=== PATIENT | male | born 1985 | race Caucasian/White ===

== ENCOUNTER 2018-05-31 13:42 | Inpatient (IN) ==
[2018-05-31 15:01] LABS: Basophils # (Auto) 0 K/mcL (0.0-0.3); Basophils % (Auto) 0.1 % (0.0-2.0); Eosinophils # (Auto) 0.1 K/mcL (0.0-0.7); Eosinophils % (Auto) 0.5 % (0.0-7.0); Granulocytes % (Auto) 85.3 % (38.0-78.0); Lymphocytes # (Auto) 1.2 K/mcL (1.5-4.8); Lymphocytes % (Auto) 6.1 % (15.5-49.0); Mean Cell Volume 83.1 fL (80.0-100.0); Mean Corpuscular HGB Conc 33.1 g/dL (31.0-36.0); Monocytes # (Auto) 1.5 K/mcL (0.1-0.9); Platelet Count 326 K/mcL (140-440); RBC 5.68 M/mcL (4.50-5.90); Red Cell Distribution Width 13.8 % (11.5-14.5)
[2018-05-31 15:20] LABS: ALT/SGPT 22 U/l (0-40); Albumin 4.3 gm/dL (3.2-5.2); Albumin/Globulin Ratio 1.3 (1.0-2.3); Alkaline Phosphatase 51 U/L (39-117); Blood Urea Nitrogen 9 mg/dl (6-20); Lipase 20 U/L (7-60)
[2018-05-31] MEDS ORDERED: 0.9 % SODIUM CHLORIDE 1,000 ML IV ONE (15:34)
[2018-05-31] MEDS ORDERED: ONDANSETRON 4 MG/2 ML VIAL IV ONE (15:34)
[2018-05-31] MEDS ORDERED: HYDROmorphone 2 MG/ML VIAL IV PRN (15:34)
--- NOTE | 2018-05-31 15:38 | Emergency Department Note ---
Abdominal Pain HPI - General Chief Complaint: Abdominal Pain Stated Complaint: abdominal pain Time Seen by Provider: 05/31/18 14:20 Source: patient Mode of arrival: ambulatory Limitations: no limitations - History of Present Illness HPI Narrative: 32-year-old male presents with continued diffuse upper abdominal pain. He also feels a pressure radiating down throughout his abdomen when he stands up. He was seen here yesterday after sudden onset of a couple hours of abdominal pain, nausea, vomiting. States he has had some nausea today but no vomiting. States when he is just resting his pain is actually a little bit better but when he is up and around it is not. States he did not feel well enough to go to work and thus thinks he is getting worse instead of better so he read presented to ER today. Positive chills, unknown fever. No diarrhea. No other home treatments. No cough or cold symptoms. He did have a CT of the abdomen and pelvis yesterday which showed air-fluid levels in a nonspecific pattern likely either gastroenteritis or some partial small bowel obstruction. Yesterday he chose to go home because he stated he could not miss work. States he is too sick to go to work - Related Data Previous Rx's Medication Instructions Recorded HYDROcodone/APAP 5/325MG [[place] 1 tab PO Q4HP PRN #10 tab 05/30/18 5-325Mg] Ondansetron [Zofran ODT] 4 mg SL Q4-6HP PRN #10 tab 05/30/18 Allergies Allergy/AdvReac Type Severity Reaction Status Date / Time Cefaclor [From [facility]] Allergy Hives Verified 05/31/18 13:46 Review of Systems All systems ED: reviewed and negative except as stated. Abdominal Pain PMH - Past Medical History Medical history: Reports: other (Hiatal hernia, morbid obesity) Surgical history ED: Reports: no surgical history - Social History Smoking status: Never smoker Alcohol use: Reports: Occasionally Drug use: Reports: unknown Physical Exam Limitations: no limitations General appearance: alert Head: atraumatic, normocephalic, normal inspection Eye: Present: normal appearance. Absent: conjunctival injection ENT: mucous membranes moist Neck: Present: normal inspection, trachea midline. Absent: tenderness, lymphadenopathy Chest: Present: symmetric chest wall rise Respiratory: Present: normal lung sounds bilaterally. Absent: respiratory distress, rales/crackles, wheezes, accessory muscle use Cardiovascular: Present: regular rate, normal heart sounds Abdominal: Present: soft (Large obese abdomen), tenderness (Diffuse epigastric a nd upper abdominal tenderness. Worse midepigastric.), normal bowel sounds. Absent: guarding, rebound, mass Extremities: Present: normal inspection, normal capillary refill Back: Absent: CVA tenderness (R), CVA tenderness (L) Neurological: Present: alert, oriented X3 Psychiatric: Present: normal affect, normal mood Skin: Present: warm, dry, intact, normal color Course Course Narrative: At 1530 I did speak with the surgeon on-call, Dr. Mendez. He would like us to admit this patient observation and will repeat CT tomorrow morning if no improvement. He would like us to hold off on antibiotics currently. Vital Signs Temperature 97.7 F 05/31/18 13:42 Pulse Rate 105 H 05/31/18 13:42 Respiratory Rate 22 05/31/18 13:42 Blood Pressure 133/82 05/31/18 13:42 Pulse Oximetry (%) 96 05/31/18 13:42 Temperature 97.7 F 05/31/18 13:42 Pulse Rate 86 05/31/18 15:18 Respiratory Rate 22 05/31/18 13:42 Blood Pressure 128/68 05/31/18 15:18 Pulse Oximetry (%) 97 05/31/18 15:18 Abdominal Pain - Lab Data Lab results reviewed: Yes I reviewed the patient's lab results. Result diagrams: 05/31/18 14:30 05/31/18 14:30 Lab Results 05/31/18 05/31/18 Range/Units 14:30 14:30 WBC 19.2 H (4.5-11.0) K/mcL RBC 5.68 (4.50-5.90) M/mcL Hgb 15.6 (13.5-16.5) g/dL Hct 47.2 (41.0-55.0) % MCV 83.1 (80.0-100.0) fL MCH 27.5 (26.0-34.0) pg MCHC 33.1 (31.0-36.0) g/dL RDW 13.8 (11.5-14.5) % Plt Count 326 (140-440) K/mcL MPV 8.2 (7.4-10.4) fL Gran % 85.3 H (38.0-78.0) % Lymph % (Auto) 6.1 L (15.5-49.0) % [place] % (Auto) 8.0 (1.0-12.0) % Eos % (Auto) 0.5 (0.0-7.0) % Baso % (Auto) 0.1 (0.0-2.0) % Gran # 16.4 H (1.8-8.0) K/mcL Lymph # (Auto) 1.2 L (1.5-4.8) K/mcL [place] # (Auto) 1.5 H (0.1-0.9) K/mcL Eos # (Auto) 0.1 (0.0-0.7) K/mcL Baso # (Auto) 0 (0.0-0.3) K/mcL Sodium 137 (133-145) mmol/L Potassium 4.1 (3.3-5.1) mmol/L Chloride 98 (96-108) mmol/L Carbon Dioxide 27 (22-30) mmol/L Anion Gap 12.0 (8-16) BUN 9 (6-20) mg/dl Creatinine 1.1 (0.7-1.2) mg/dl GFR Calculation 89 Glucose 104 (70-105) mg/dL Calcium 9.4 (8.6-10.4) mg/dl Total Bilirubin 1.1 H (0.0-1.0) mg/dL AST 18 (0-37) U/l ALT 22 (0-40) U/l Alkaline Phosphatase 51 (39-117) U/L Total Protein 7.6 (5.9-8.4) gm/dL Albumin 4.3 (3.2-5.2) gm/dL Globulin 3.3 (2.2-3.7) gm/dL Albumin/Globulin Ratio 1.3 (1.0-2.3) Lipase 20 (7-60) U/L - Radiology Data Radiology results reviewed: Yes I reviewed the patient's radiology results. 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
[2018-05-31] MEDS ORDERED: ONDANSETRON 4 MG/2 ML VIAL IV PRN (15:46)
[2018-05-31 16:11] LABS: Appearance,Urine HAZY; Bacteria,Urine FEW /hpf (0); Bilirubin,Urine NEG (NEG); Color,Urine AMBER; Glucose,Urine (UA) NEGATIVE (NEG); Leukocyte Esterase,Urine NEG /uL (NEG); Mucus,Urine MANY /hpf (0); Protein,Urine 100 mg/dL (NEG); Specific Gravity,Urine 1.031 (1.000-1.035); Urine Blood NEG mg/dL (<0.03); Urine Hyaline Cast 3 /lpf (0-2); Urine RBC 1 /hpf (0-1); Urine Squamous Epithelial Cell < 1 /hpf (0-4); Urine Transitional Epi Cells < 1 /hpf (0-2); Urine WBC 3 /hpf (0-4)
[2018-05-31] MEDS: HYDROmorphone 2 MG/ML VIAL IV PRN (18:18)
[2018-05-31] MEDS: 0.9 % SODIUM CHLORIDE 1,000 ML IV SCH (18:20)
[2018-05-31] MEDS: ACETAMINOPHEN 1,000 MG/100 ML BOTTLE IV PRN (19:37)
[2018-05-31] MEDS: metroNIDAZOLE 500 MG/100 ML BAG IV SCH (20:14)
[2018-05-31] MEDS: LEVOFLOXACIN 750 MG/150 ML BAG IV SCH (21:21)
[2018-05-31] MEDS: PANTOPRAZOLE 40 MG VIAL IV SCH (21:28)
[2018-06-01] MEDS: metroNIDAZOLE 500 MG/100 ML BAG IV SCH ×5 (00:49→23:50)
[2018-06-01] MEDS: 0.9 % SODIUM CHLORIDE 1,000 ML IV SCH ×6 (05:51→23:58)
[2018-06-01 06:00] LABS: Basophils # (Auto) 0 K/mcL (0.0-0.3); Basophils % (Auto) 0.1 % (0.0-2.0); Eosinophils # (Auto) 0.1 K/mcL (0.0-0.7); Eosinophils % (Auto) 0.3 % (0.0-7.0); Granulocytes % (Auto) 90.5 % (38.0-78.0); Lymphocytes % (Auto) 3.8 % (15.5-49.0); Mean Cell Volume 83.6 fL (80.0-100.0); Mean Corpuscular HGB Conc 33.1 g/dL (31.0-36.0); Monocytes # (Auto) 1.4 K/mcL (0.1-0.9); Monocytes % (Auto) 5.3 % (1.0-12.0); Platelet Count 292 K/mcL (140-440); RBC 4.94 M/mcL (4.50-5.90); Red Cell Distribution Width 14.4 % (11.5-14.5)
[2018-06-01 06:34] LABS: ALT/SGPT 18 U/l (0-40); Albumin 3.3 gm/dL (3.2-5.2); Albumin/Globulin Ratio 1.1 (1.0-2.3); Alkaline Phosphatase 43 U/L (39-117); Blood Urea Nitrogen 12 mg/dl (6-20)
[2018-06-01] MEDS: PANTOPRAZOLE 40 MG VIAL IV SCH ×2 (08:22→20:32)
[2018-06-01] MEDS: ACETAMINOPHEN 1,000 MG/100 ML BOTTLE IV PRN ×2 (08:23→21:16)
[2018-06-01] MEDS ORDERED: VANCOMYCIN PER PHARMACY IV SCH (10:00)
[2018-06-01] MEDS: VANCOMYCIN 1,500 MG in 0.9 % SODIUM CHLORIDE 500 ML IV SCH ×2 (10:28→20:32)
[2018-06-01] MEDS: HYDROmorphone 2 MG/ML VIAL IV PRN (10:37)
[2018-06-01] MEDS: LEVOFLOXACIN 750 MG/150 ML BAG IV SCH (13:53)
[2018-06-01] MEDS ORDERED: 0.9 % SODIUM CHLORIDE 1,000 ML IV ONE (15:10)
--- NOTE | 2018-06-01 15:44 | General Surg History&Physical ---
History of Present Illness Patient information: Note initiated : 06/01/18 at 3:40 pm Service Date, if different from initiated Date: [] Patient: Cheko Bautista 32 y/o M admitted on 06/01/18 for Abd Pain. Chief Complaint: [] HPI: Mr. Bautista is a 32 year old M admitted with upper abdominal pain, fever, chills, and probable sepsis. The patient had onset of upper abdominal discomfort with nausea, vomiting and diaphoresis. 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 He gives a history of having diarrhea intermittently for many months but this usually resolves spontaneously. He denied having any sore throat, facial pain, neck pain, chest discomfort or cough. He denies any swelling, tenderness or inflammation in his extremities. He denies any animal bites or scratches. The patient was seen in the emergency room where he was afebrile with a normal exam except for epigastric tenderness. He was treated for suspected gastritis and released. He returns on the day of admission with diffuse upper abdominal pain, continued nausea but no vomiting. He was having more chills and fever. CT of the abdomen showed scattered air-fluid levels suspicious for gastroenteritis but otherwise no abnormality. There was specifically no free air in the upper abdomen. Patient has remained symptomatic and his temperature elevations have increased to 103. His white blood count is increased to 19.2. He is admitted and will be started on antibiotics pending cultures. He does not have a clinical acute abdomen at this time. Review of Systems - Constitutional chills, fever(s), headache(s), malaise, weakness - EENT Nose, mouth and throat: no dental pain, no dysphagia, no facial pain, no mouth lesions, no neck pain, no sinus pain, no sinus pressure, no throat swelling, no tongue swelling - Cardiovascular diaphoresis, rapid heart rate, no chest pain, no dyspnea on exertion, no palpatations - Respiratory no cough, no dyspnea on exertion, no wheezing, no chest congestion, no excessive phlegm production - Gastrointestinal abdominal pain, heartburn, nausea, vomiting - Genitourinary no difficulty urinating, no dysuria, no scrotal swelling, no urinary frequency, no urinary incontinence, no urinary urgency - Musculoskeletal no arthralgias, no joint swelling, no myalgias, no neck pain, no stiffness - Integumentary no lesions, no non-healing lesions, no pruritus, no rash (now) - Neurological no confusion, no dizziness, no headache(s) - Psychiatric no anxiety, no depression, no irritability - Endocrine fatigue, no polydipsia, no polyphagia, no polyuria - Hematologic/Lymphatic no easy bleeding, no easy bruising, no lymphadenopathy - Allergic/Immunologic no tongue swelling, no throat swelling, no itchy eyes, no uticaria, no wheezing, no lip swelling Past History Past medical history: No chronic medical illness Past surgical history: No operative procedures Past family history: Never smoker, occasional drinker. Strictly denies IV drug use Past social history: . Employed Medications and Allergies Home Medications Medication Instructions Recorded Confirmed Type Acetaminophen [Tylenol] 1,000 mg PO TIDP PRN 05/31/18 05/31/18 History Ibuprofen [I-Prin] 2 - 3 tab PO TIDP PRN 05/31/18 05/31/18 History Omeprazole [Prilosec] 1 tab PO DAILY 05/31/18 05/31/18 History Sudafed 1 tab PO TIDP PRN 05/31/18 05/31/18 History Allergies Allergy/AdvReac Type Severity Reaction Status Date / Time Cefaclor [From [facility]] Allergy Hives Verified 05/31/18 16:51 Exam Temp Pulse Resp BP Pulse Ox 101.2 F H 124 H 18 80/41 96 06/01/18 15:02 06/01/18 15:02 06/01/18 15:02 06/01/18 15:02 06/01/18 15:02 - General physical appearance well developed, well nourished, no distress, other (morbid obesity) - Eyes PERRL, normal ocular movement, other (no facial or periocular inflammation) - ENT normal pinna, normal nares, normal mucosa, no congestion, poor snf. negative: nasal discharge - Head Head exam IM: Present: atraumatic, normocephalic Head exam expanded IM: Absent: general tenderness - Neck no masses, no bruits, trachea midline, no lymphadenopathy, no venous distension, other (no neck masses or tender indurations; no adenopathy) - Cardiovascular Cardiovascular exam IM: Present: normal rate and rhythm, +S1, +S2, tachycardia. Absent: irregular rhythm, JVD - Respiratory normal expansion, normal respiratory effort, clear to auscultation - Abdomen Abdomen: Present: soft, tender (mild epigastric tenderness to the left of midline; normal bowel sounds), bowel sounds Hernia: Present: none - Genitourinary Present: normal penis with no external lesions, other (no genital lesions. No inguinal adenopathy) - Rectum Rectum: Present: normal sphincter tone, no hemorrhoids, no tenderness, no masses, no bleeding, other (no perianal tenderness, induration, swelling) - Integumentary Present: no rash, no growths, no abnormal pigmentation, other (no skin lesions of any kind; no evidence of folliculitis or other cutaneous lesion) - Neurologic Present: normal coordination, normal sensation - Musculoskeletal Present: normal gait, normal posture, other (no joint swelling, redness or tenderness) - Psychiatric Present: oriented to time, oriented to person, oriented to place, speech is normal, memory intact Assessment and Plan (1) Acute sepsis The etiology of his source of sepsis is not readily apparent on physical exam or by CT scan. Will follow-up chest x-ray. Await the results of cultures. Status: Acute
[2018-06-01] MEDS: PIPERACILLIN SODIUM/TAZOBACTAM 3.375 GM in DEXTROSE 5% IN WATER 50 ML IV SCH ×3 (16:12→23:50)
--- NOTE | 2018-06-01 16:44 | General Surgery Progress Note ---
Subjective Patient reports: pain is less, no flatus, no bowel movement, fever Narrative: Note initiated : 06/01/18 at 4:42 pm Service Date, if different from initiated Date: [] Patient: Cheko Bautista 32 y/o M admitted on 06/01/18 for Abd Pain. Chief Complaint: [pATIENT HAS HAD FEVER ALL DAY. He has mild epigastric discomfort. He denies nausea vomiting. He denies chest pain or cough. He denies any extremity pain. He had a drop in blood pressure to the 80s systolic range which responded to IV fluid infusion..wwhite blood count is 26.6. Blood cultures positive for gram-positive cocci in 2 of 2 specimen.] Objective Temp Pulse Resp BP Pulse Ox 101.2 F H 124 H 18 80/41 96 06/01/18 15:02 06/01/18 15:02 06/01/18 15:02 06/01/18 15:02 06/01/18 15:02 - Additional Data Intake & Output - Last 24 hours: Intake & Output 05/30/18 05/31/18 06/01/18 06/02/18 05:59 05:59 05:59 05:59 Intake Total 2133 / 2133 2800 / 2800 Output Total 300 / 300 Balance 1833 / 1833 2800 / 2800 Weight 293 lb - General physical appearance well developed, well nourished, no distress, no pain, obese - Eyes PERRL, normal ocular movement - ENT normal pinna, normal nares, normal mucosa, no hearing loss, no congestion, other (no facial pain or soreness) - Neck no masses, no bruits, trachea midline, no lymphadenopathy, no venous distension - Respiratory normal expansion, normal respiratory effort, clear to auscultation - Cardiovascular Cardiovascular exam: Present: normal rate and rhythm. Absent: JVD, tachycardia - Abdomen tender ( mild epigastric tenderness BUT NO RIGHT UPPER QUADRANT TENDERNESS), bowel sounds (present), surgical scars (none), masses (none) - Integumentary no rash, no growths, no abnormal pigmentation - Neurologic normal coordination, normal sensation - Psychiatric oriented to time, oriented to person, oriented to place, speech is normal, memory intact - Labs 06/01/18 04:25 06/01/18 04:25 Diabetes panel 06/01/18 Range/Units 04:25 Sodium 139 (133-145) mmol/L Potassium 3.8 (3.3-5.1) mmol/L Chloride 102 (96-108) mmol/L Carbon Dioxide 23 (22-30) mmol/L BUN 12 (6-20) mg/dl Creatinine 1.2 (0.7-1.2) mg/dl Glucose 94 (70-105) mg/dL Calcium 8.3 L (8.6-10.4) mg/dl AST 16 (0-37) U/l ALT 18 (0-40) U/l Alkaline Phosphatase 43 (39-117) U/L Total Protein 6.3 (5.9-8.4) gm/dL Albumin 3.3 (3.2-5.2) gm/dL Calcium panel 06/01/18 Range/Units 04:25 Calcium 8.3 L (8.6-10.4) mg/dl Albumin 3.3 (3.2-5.2) gm/dL Pituitary panel 06/01/18 Range/Units 04:25 Sodium 139 (133-145) mmol/L Potassium 3.8 (3.3-5.1) mmol/L Chloride 102 (96-108) mmol/L Carbon Dioxide 23 (22-30) mmol/L BUN 12 (6-20) mg/dl Creatinine 1.2 (0.7-1.2) mg/dl Glucose 94 (70-105) mg/dL Calcium 8.3 L (8.6-10.4) mg/dl Adrenal panel 06/01/18 Range/Units 04:25 Sodium 139 (133-145) mmol/L Potassium 3.8 (3.3-5.1) mmol/L Chloride 102 (96-108) mmol/L Carbon Dioxide 23 (22-30) mmol/L BUN 12 (6-20) mg/dl Creatinine 1.2 (0.7-1.2) mg/dl Glucose 94 (70-105) mg/dL Calcium 8.3 L (8.6-10.4) mg/dl Total Bilirubin 1.3 H (0.0-1.0) mg/dL AST 16 (0-37) U/l ALT 18 (0-40) U/l Alkaline Phosphatase 43 (39-117) U/L Total Protein 6.3 (5.9-8.4) gm/dL Albumin 3.3 (3.2-5.2) gm/dL Assessment and Plan (1) Acute sepsis Status: Acute Assessment and plan: Zosyn 3.375 g IV every 6 Vancomycin per pharmacy Chest x-ray to rule out pneumonitis Continue IV fluid hydration Current Visit: Yes - Time Spent With Patient Total time spent is greater than 50% in coordination of care (as documented) at patient's floor/unit and/or counseling patient:
--- NOTE | 2018-06-01 16:52 | XRay Report ---
CLINICAL INFORMATION: gram positive bacteremia COMPARISON: None. FINDINGS: Heart size, mediastinum and pulmonary vessels are normal. The prominent fat pad in the right cardiophrenic angle. Lungs are clear. No effusions. IMPRESSION: Negative Interpreted and Authenticated by: William Alcocer 06/01/18
[2018-06-02] MEDS: ACETAMINOPHEN 1,000 MG/100 ML BOTTLE IV SCH ×5 (01:01→23:27)
[2018-06-02] MEDS: 0.9 % SODIUM CHLORIDE 1,000 ML IV SCH ×4 (04:08→17:03)
[2018-06-02] MEDS: metroNIDAZOLE 500 MG/100 ML BAG IV SCH ×3 (05:27→17:46)
[2018-06-02 05:39] LABS: Basophils # (Auto) 0 K/mcL (0.0-0.3); Basophils % (Auto) 0 % (0.0-2.0); Eosinophils # (Auto) 0 K/mcL (0.0-0.7); Eosinophils % (Auto) 0.1 % (0.0-7.0); Granulocytes % (Auto) 86.8 % (38.0-78.0); Lymphocytes # (Auto) 0.8 K/mcL (1.5-4.8); Mean Cell Volume 83.8 fL (80.0-100.0); Mean Corpuscular HGB Conc 33.6 g/dL (31.0-36.0); Monocytes # (Auto) 1.3 K/mcL (0.1-0.9); Monocytes % (Auto) 8.1 % (1.0-12.0); Platelet Count 227 K/mcL (140-440); RBC 4.38 M/mcL (4.50-5.90); Red Cell Distribution Width 13.9 % (11.5-14.5)
[2018-06-02 05:56] LABS: ALT/SGPT 18 U/l (0-40); Albumin 3.1 gm/dL (3.2-5.2); Albumin/Globulin Ratio 1.1 (1.0-2.3); Alkaline Phosphatase 35 U/L (39-117); Bilirubin,Direct 0.2 mg/dL (0.0-0.3); Blood Urea Nitrogen 14 mg/dl (6-20); Gamma Glutamyl Transpeptidase 37 U/L (8-61); Uric Acid 4.3 mg/dL (2.5-8.0)
[2018-06-02] MEDS: PIPERACILLIN SODIUM/TAZOBACTAM 3.375 GM in DEXTROSE 5% IN WATER 50 ML IV SCH ×3 (05:56→17:08)
[2018-06-02] MEDS: PANTOPRAZOLE 40 MG VIAL IV SCH ×2 (10:17→21:33)
--- NOTE | 2018-06-02 10:59 | General Surgery Progress Note ---
Subjective Patient reports: feels better, pain is less, flatus, no bowel movement, diarrhea, nausea, fever Narrative: Note initiated : 06/02/18 at 10:58 am Service Date, if different from initiated Date: [] Patient: Cheko Bautista 32 y/o M admitted on 06/01/18 for Abd Pain. Chief Complaint: [Patient states that he feels much better. He has been afebrile for at least 18 hours. His tachycardia has resolved and his heart rate is consistently below 90. He has mild epigastric discomfort but is much improved from yesterday. Urine output has increased. White blood count is down to 15.6. He is still having diarrheal stools.] Objective Temp Pulse Resp BP Pulse Ox 97.9 F 78 18 102/61 97 06/02/18 07:15 06/02/18 07:15 06/02/18 07:15 06/02/18 07:15 06/02/18 07:15 - Additional Data Intake & Output - Last 24 hours: Intake & Output 05/31/18 06/01/18 06/02/18 06/03/18 05:59 05:59 05:59 05:59 Intake Total 2133 / 2133 5500 / 5500 Output Total 300 / 300 975 / 975 800 / 800 Balance 1833 / 1833 4525 / 4525 -800 / -800 Weight 293 lb 325 lb 8 oz - General physical appearance well developed, well nourished, no distress, obese - Eyes PERRL, normal ocular movement - ENT normal pinna, normal nares, normal mucosa, no hearing loss, no congestion - Neck no masses, no bruits, trachea midline, no lymphadenopathy, no venous distension - Respiratory normal expansion, normal respiratory effort, clear to auscultation - Cardiovascular Cardiovascular exam: Present: normal rate and rhythm, RRR, +S1, +S2. Absent: JVD, systolic murmur, tachycardia - Abdomen tender (minimal epigastric tenderness without guarding; good active bowel sounds) - Integumentary no rash, no growths, no abnormal pigmentation - Neurologic normal coordination, normal sensation - Musculoskeletal normal gait, normal posture - Psychiatric oriented to time, oriented to person, oriented to place, speech is normal, memory intact - Labs 06/02/18 04:40 06/02/18 04:40 Diabetes panel 06/02/18 Range/Units 04:40 Sodium 139 (133-145) mmol/L Potassium 3.5 (3.3-5.1) mmol/L Chloride 106 (96-108) mmol/L Carbon Dioxide 19 L (22-30) mmol/L BUN 14 (6-20) mg/dl Creatinine 1.2 (0.7-1.2) mg/dl Glucose 112 H (70-105) mg/dL Calcium 7.9 L (8.6-10.4) mg/dl AST 26 (0-37) U/l ALT 18 (0-40) U/l Alkaline Phosphatase 35 L (39-117) U/L Total Protein 5.8 L (5.9-8.4) gm/dL Albumin 3.1 L (3.2-5.2) gm/dL Triglycerides 148 (<150) mg/dl Calcium panel 06/02/18 Range/Units 04:40 Calcium 7.9 L (8.6-10.4) mg/dl Phosphorus 2.8 (2.7-4.5) mg/dL Albumin 3.1 L (3.2-5.2) gm/dL Pituitary panel 06/02/18 Range/Units 04:40 Sodium 139 (133-145) mmol/L Potassium 3.5 (3.3-5.1) mmol/L Chloride 106 (96-108) mmol/L Carbon Dioxide 19 L (22-30) mmol/L BUN 14 (6-20) mg/dl Creatinine 1.2 (0.7-1.2) mg/dl Glucose 112 H (70-105) mg/dL Calcium 7.9 L (8.6-10.4) mg/dl Adrenal panel 06/02/18 Range/Units 04:40 Sodium 139 (133-145) mmol/L Potassium 3.5 (3.3-5.1) mmol/L Chloride 106 (96-108) mmol/L Carbon Dioxide 19 L (22-30) mmol/L BUN 14 (6-20) mg/dl Creatinine 1.2 (0.7-1.2) mg/dl Glucose 112 H (70-105) mg/dL Calcium 7.9 L (8.6-10.4) mg/dl Total Bilirubin 0.8 (0.0-1.0) mg/dL AST 26 (0-37) U/l ALT 18 (0-40) U/l Alkaline Phosphatase 35 L (39-117) U/L Total Protein 5.8 L (5.9-8.4) gm/dL Albumin 3.1 L (3.2-5.2) gm/dL Assessment and Plan (1) Acute sepsis Status: Acute Assessment and plan: Continue IV fluid hydration Continue IV antibiotics Full liquid diet Check labs in the morning Follow-up culture results in the morning Current Visit: Yes - Time Spent With Patient Total time spent is greater than 50% in coordination of care (as documented) at patient's floor/unit and/or counseling patient:
[2018-06-02] MEDS: VANCOMYCIN 1,500 MG in 0.9 % SODIUM CHLORIDE 500 ML IV SCH ×2 (11:38→21:38)
[2018-06-02] MEDS ORDERED: IBUPROFEN 600 MG TABLET PO ONE (22:05)
[2018-06-02] MEDS: IBUPROFEN 400 MG TABLET PO SCH (22:11)
[2018-06-03] MEDS: metroNIDAZOLE 500 MG/100 ML BAG IV SCH ×2 (00:21→06:32)
[2018-06-03] MEDS: PIPERACILLIN SODIUM/TAZOBACTAM 3.375 GM in DEXTROSE 5% IN WATER 50 ML IV SCH ×2 (00:23→06:32)
[2018-06-03] MEDS: 0.9 % SODIUM CHLORIDE 1,000 ML IV SCH ×4 (03:53→17:13)
[2018-06-03] MEDS ORDERED: IBUPROFEN 600 MG TABLET PO ONE (04:12)
[2018-06-03] MEDS: IBUPROFEN 400 MG TABLET PO SCH (04:33)
[2018-06-03] MEDS: ACETAMINOPHEN 1,000 MG/100 ML BOTTLE IV SCH ×4 (05:22→23:26)
[2018-06-03] MEDS ORDERED: IBUPROFEN 200 MG TABLET PO SCH (08:00)
[2018-06-03] MEDS: VANCOMYCIN 1,500 MG in 0.9 % SODIUM CHLORIDE 500 ML IV SCH ×2 (08:29→20:53)
[2018-06-03 09:36] LABS: Basophils # (Auto) 0 K/mcL (0.0-0.3); Basophils % (Auto) 0.3 % (0.0-2.0); Eosinophils # (Auto) 0 K/mcL (0.0-0.7); Eosinophils % (Auto) 0.4 % (0.0-7.0); Granulocytes % (Auto) 85.4 % (38.0-78.0); Lymphocytes # (Auto) 0.7 K/mcL (1.5-4.8); Lymphocytes % (Auto) 5.8 % (15.5-49.0); Mean Cell Volume 83.8 fL (80.0-100.0); Monocytes % (Auto) 8.1 % (1.0-12.0); Platelet Count 213 K/mcL (140-440); RBC 4.62 M/mcL (4.50-5.90); Red Cell Distribution Width 14.3 % (11.5-14.5)
[2018-06-03] MEDS: IBUPROFEN 200 MG TABLET PO SCH ×2 (10:11→17:49)
[2018-06-03] MEDS: PANTOPRAZOLE 40 MG VIAL IV SCH ×2 (10:11→20:52)
[2018-06-03 10:47] LABS: ALT/SGPT 20 U/l (0-40); Albumin 2.8 gm/dL (3.2-5.2); Albumin/Globulin Ratio 0.9 (1.0-2.3); Alkaline Phosphatase 36 U/L (39-117); Bilirubin,Direct 0.2 mg/dL (0.0-0.3); Blood Urea Nitrogen 11 mg/dl (6-20); Gamma Glutamyl Transpeptidase 42 U/L (8-61); Uric Acid 2.5 mg/dL (2.5-8.0)
--- NOTE | 2018-06-03 13:53 | Cat Scan Report ---
CLINICAL INFORMATION: Bacteremia COMPARISON: Abdomen and pelvic CT 05/30/2018 TECHNIQUE: Enteric contrast was utilized. 80 cc of Isovue-300 were injected intravenously, and 50 seconds later 2.5 mm helical slices were obtained from the lung apices through the subtrochanteric regions of the femurs. Following reconstruction, 2.5 mm sagittal, coronal and axial reformatted images were processed and reviewed at multiple windows and levels. 7 mm MIP reconstructions were obtained through the lungs to optimize nodule detection.The exam was performed using radiation dose optimization techniques including, but not limited to, automated exposure control, adjustment of the mA and/or kV according to patient size and use of iterative reconstruction technique. FINDINGS: Lung windows show subsegmental atelectasis in the right lower lobe. No infiltrates - the remaining lung are clear. No effusions. Mediastinal windows show the noncontrasted thoracic aorta and pulmonary arteries are normal in contour and caliber. There is no adenopathy in the mediastinal hilar or axillary regions. The heart is normal in size and configuration. Esophagus is grossly normal. Thyroid is unremarkable Images through the abdomen now show moderate diffuse wall thickening of the gallbladder patible with cholecystitis. There may be a few faint stones in the gallbladder neck. There is a new finding from CT four days ago. The noncontrasted liver, intrahepatic and common bile ducts, both kidneys, adrenal glands, spleen, pancreas and aorta are normal in size configuration and attenuation without focal lesion. The stomach, small large bowel are unremarkable except for a few sigmoid diverticuli. A small amount of free fluid is noted in the true pelvis. There is no intra-abdominal intrapelvic adenopathy or free air Prostate, seminal vesicles and urinary bladder are normal. Bone windows show no osseous abnormality throughout the chest, abdomen and pelvis IMPRESSION: Cholecystitis - new from CT four days ago. Interpreted and Authenticated by: William Alcocer 06/03/18
[2018-06-03] MEDS: cefTRIAXone 2 GM in DEXTROSE 5% IN WATER 50 ML IV SCH (14:11)
--- NOTE | 2018-06-03 16:30 | Ultrasound Report ---
CLINICAL INFORMATION: Bacteremia. Diffuse gallbladder wall thickening on CT evaluate for cholecystitis COMPARISON: Abdominal and pelvic CT 06/03/2018. FINDINGS: The gallbladder wall is markedly thickened (8 mm). Additionally, there is focal tenderness over the gallbladder on probe palpation. A 3 cm stone is seen in the gallbladder fundus. Two small stones also the gallbladder neck. Common bile duct is normal: 5 mm. The liver is hyperechoic, with fatty change. Pancreas not visualized. IMPRESSION: Cholecystitis. Common bile duct is normal caliber Interpreted and Authenticated by: William Alcocer 06/03/18
--- NOTE | 2018-06-03 17:15 | General Surgery Progress Note ---
Subjective Patient reports: feels better, pain is less, tolerating liquids well, flatus, bowel movement, diarrhea, fever Narrative: Note initiated : 06/03/18 at 5:13 pm Service Date, if different from initiated Date: [] Patient: Cheko Bautista 32 y/o M admitted on 06/01/18 for Abd Pain. Chief Complaint: [patient had high-grade fever last evening with temperatures above 103. He has been afebrile since 0400 This morning. His abdominal pain is significantly reduced. White blood count is 11.9.. Cultures of finally identified as Streptococcus intermedius. He has been seen by infectious disease and some recommendations have been made.. a CT of the abdomen was done and this showed gallstones with thickened gallbladder wall. He however does not have any right upper quadrant subcostal tenderness. I'm still not convinced that the sepsis is related to the gallbladder. The diarrhea however may be a product of gallbladder dysfunction..] Objective Temp Pulse Resp BP Pulse Ox 98.7 F 83 22 134/90 97 06/03/18 12:00 06/03/18 12:00 06/03/18 12:00 06/03/18 12:00 06/03/18 12:00 - Additional Data Intake & Output - Last 24 hours: Intake & Output 06/01/18 06/02/18 06/03/18 06/04/18 05:59 05:59 05:59 05:59 Intake Total 2133 / 2133 6100 / 6100 4240 / 4240 3020 / 3020 Output Total 300 / 300 975 / 975 1865 / 1865 675 / 675 Balance 1833 / 1833 5125 / 5125 2375 / 2375 2345 / 2345 Weight 293 lb 325 lb 8 oz 327 lb - General physical appearance well developed, well nourished, no distress - Eyes PERRL, normal ocular movement - ENT normal pinna, normal nares, normal mucosa, no hearing loss, no congestion - Neck no masses, no bruits, trachea midline, no lymphadenopathy, no venous distension - Respiratory normal expansion, normal respiratory effort, clear to auscultation - Cardiovascular Cardiovascular exam: Present: normal rate and rhythm, RRR, +S1, +S2. Absent: JVD, tachycardia - Abdomen non tender (no epigastric or right upper quadrant tenderness), bowel sounds (present), surgical scars (none), masses (none) - Integumentary no rash, no growths, no abnormal pigmentation - Neurologic normal coordination, normal sensation - Musculoskeletal normal gait, normal posture - Psychiatric oriented to time, oriented to person, oriented to place, speech is normal, memory intact - Labs 06/03/18 08:25 06/03/18 08:25 Diabetes panel 06/03/18 06/03/18 Range/Units 04:40 08:25 Sodium TNP 141 Potassium TNP 3.5 Chloride TNP 110 H Carbon Dioxide TNP 17 L BUN TNP 11 Creatinine TNP 1.0 Glucose TNP 99 Calcium TNP 8.1 L AST TNP 26 ALT TNP 20 Alkaline Phosphatase TNP 36 L Total Protein TNP 6.0 Albumin TNP 2.8 L Triglycerides TNP 126 Calcium panel 06/03/18 06/03/18 Range/Units 04:40 08:25 Calcium TNP 8.1 L Phosphorus TNP 2.1 L Albumin TNP 2.8 L Pituitary panel 06/03/18 06/03/18 Range/Units 04:40 08:25 Sodium TNP 141 Potassium TNP 3.5 Chloride TNP 110 H Carbon Dioxide TNP 17 L BUN TNP 11 Creatinine TNP 1.0 Glucose TNP 99 Calcium TNP 8.1 L Adrenal panel 06/03/18 06/03/18 Range/Units 04:40 08:25 Sodium TNP 141 Potassium TNP 3.5 Chloride TNP 110 H Carbon Dioxide TNP 17 L BUN TNP 11 Creatinine TNP 1.0 Glucose TNP 99 Calcium TNP 8.1 L Total Bilirubin TNP 0.7 AST TNP 26 ALT TNP 20 Alkaline Phosphatase TNP 36 L Total Protein TNP 6.0 Albumin TNP 2.8 L Assessment and Plan (1) Acute sepsis Status: Acute Assessment and plan: Continue IV fluid hydration Low-fat diet Current Visit: Yes (2) Cholelithiasis and cholecystitis without obstruction Status: Acute Current Visit: Yes - Time Spent With Patient Total time spent is greater than 50% in coordination of care (as documented) at patient's floor/unit and/or counseling patient:
--- NOTE | 2018-06-03 18:55 | Infectious Disease Consult ---
History of Present Illness Patient information: Note initiated : 06/03/18 at 6:55 pm Service Date, if different from initiated Date: [] Patient: Cheko Bautista 32 y/o M admitted on 06/01/18 for Abd Pain. Chief Complaint: [] Consult date: 06/03/18 Requesting Physician: Piyush Mendez MD History of present illness: CC: i had vomiting when i initially came Reason for consult: high grade fevers despite antibiotic therapy and GPC bacteremia HPI: 32 year old man with PMHx of: - obesity - hiatus hernia - chronic intermittent diarrhea Pt was admitted on 05/30 with c/o vomiting and belly pain in epigastric region. Pt reports that around last Thursday he started noticing pain in epigastric region followed by nausea and next day having vomiting containing gastric contents which prompted him to come to ER. Pt denied any fever, chills, blood in vomiting, heartburn-like symptoms. Rest ROS was negative. His admission VS were unremarkable except for HR 105. Adm WBC was 19k. CT of the abdomen and pelvis on 05/30 showed air-fluid levels in a nonspecific pattern likely either gastroenteritis or some partial small bowel obstruction. He was conservatively managed. Pt developed loose stools (looser than he normally has) after admission. Starting evening of 05/31, pt started spiking fevers up to 39C which on 06/02 intermittently peaked till 40 C. Pt had blood Cx sent on 05/31 along with stool cx, stool Cdiff subseq. He was started on multiple IV abx: Levofloxacin, metronidazole, Vanc, Zosyn. Pt's blood Cx went positive on 06/01 for GPC in clusters and chains which today finalized as Strept intermedius. Pt has been getting better in terms of his belly pain, WBC. At time of visit today, he confirmed the above Hx. Added that he did not have any recent sick contacts. He denied any belly pain, chills, fever, cough, teeth problems. A CT chest/abd/pelvis was ordered today which showed new findings concerning for acute cholecystitis. Subseq, US of gall bladder today showed: The gallbladder wall is markedly thickened (8 mm). Additionally, there is focal tenderness over the gallbladder on probe palpation. A 3 cm stone is seen in the gallbladder fundus. Two small stones also the gallbladder neck. Review of Systems All systems PM: reviewed and no additional remarkable complaints except as stated Past History Past family history: not pertinent to current presentation Past social history: lives in apartment in [place] with his and 2 cats denies any smoking, IV drug use occasional whisky use (1 drink at a time), few days/ week Medications and Allergies Home Medications Medication Instructions Recorded Confirmed Type Acetaminophen [Tylenol] 1,000 mg PO TIDP PRN 05/31/18 05/31/18 History Ibuprofen [I-Prin] 2 - 3 tab PO TIDP PRN 05/31/18 05/31/18 History Omeprazole [Prilosec] 1 tab PO DAILY 05/31/18 05/31/18 History Sudafed 1 tab PO TIDP PRN 05/31/18 05/31/18 History Allergies Allergy/AdvReac Type Severity Reaction Status Date / Time Cefaclor [From [facility]] Allergy Hives Verified 05/31/18 16:51 Physical Examination Vital signs: Temp Pulse Resp BP Pulse Ox 37.1 C 85 16 130/87 95 06/03/18 16:00 06/03/18 16:00 06/03/18 16:00 06/03/18 16:00 06/03/18 16:00 General appearance: no acute distress Eyes pulmonary: nonicteric ENT: oropharynx moist Neck: supple Auscultation: bilateral: clear Cardiovascular: regular rate and rhythm Gastrointestinal: normoactive bowel sounds, soft, non-tender Integumentary: other Extremities: no edema Results - Laboratory Findings CBC and BMP: 06/03/18 08:25 06/03/18 08:25 Abnormal lab findings: Abnormal Labs 05/31/18 05/31/18 05/31/18 14:30 14:30 15:10 WBC 19.2 H RBC Hgb Hct Gran % 85.3 H Lymph % (Auto) 6.1 L Gran # 16.4 H Lymph # (Auto) 1.2 L [place] # (Auto) 1.5 H Chloride Carbon Dioxide Glucose Calcium Phosphorus Total Bilirubin 1.1 H Alkaline Phosphatase Total Protein Albumin Albumin/Globulin Ratio Urine Protein 100 A Urine Ketones 80 A Urine Urobilinogen 2.0 A Urine Bacteria Few A Hyaline Casts 3 H Urine Mucus Many A 06/01/18 06/01/18 06/02/18 04:25 04:25 04:40 WBC 26.6 H 15.7 H RBC 4.38 L Hgb 12.3 L Hct 36.7 L Gran % 90.5 H 86.8 H Lymph % (Auto) 3.8 L 5.0 L Gran # 24.1 H 13.7 H Lymph # (Auto) 1.0 L 0.8 L [place] # (Auto) 1.4 H 1.3 H Chloride Carbon Dioxide Glucose Calcium 8.3 L Phosphorus Total Bilirubin 1.3 H Alkaline Phosphatase Total Protein Albumin Albumin/Globulin Ratio Urine Protein Urine Ketones Urine Urobilinogen Urine Bacteria Hyaline Casts Urine Mucus 06/02/18 06/03/18 06/03/18 04:40 08:25 08:25 WBC 11.9 H RBC Hgb 12.8 L Hct 38.7 L Gran % 85.4 H Lymph % (Auto) 5.8 L Gran # 10.1 H Lymph # (Auto) 0.7 L [place] # (Auto) 1.0 H Chloride 110 H Carbon Dioxide 19 L 17 L Glucose 112 H Calcium 7.9 L 8.1 L Phosphorus 2.1 L Total Bilirubin Alkaline Phosphatase 35 L 36 L Total Protein 5.8 L Albumin 3.1 L 2.8 L Albumin/Globulin Ratio 0.9 L Urine Protein Urine Ketones Urine Urobilinogen Urine Bacteria Hyaline Casts Urine Mucus Microbiology: Microbiology 05/31/18 20:09 Blood Blood Culture - Preliminary Streptococcus intermedius 06/02/18 02:27 Stool Stool Culture - Preliminary 06/02/18 02:26 Stool Parasite Direct Smear - Final 06/02/18 02:26 Stool Parasite Concentrated Smear - Final 06/02/18 02:26 Stool Parasite Permanent Smear - Final 05/31/18 15:36 Urine - Clean Void Mid-Stream Urine Culture - Final 06/02/18 02:26 Stool C. difficile GDH Antigen & Toxins - Final 06/01/18 23:05 Stool C.difficile Toxin B Gene (PCR) - Final 06/01/18 23:05 Stool Stool Culture - Final 06/01/18 23:05 Stool Hemorrhagic E.coli Culture - Final 06/01/18 23:05 Stool Parasite Direct Smear - Final 06/01/18 23:05 Stool Parasite Concentrated Smear - Final 06/01/18 23:05 Stool Parasite Permanent Smear - Final 05/31/18 19:58 Blood Blood Culture - Preliminary Gram positive cocci Assessment and Plan - Narrative A/P Narrative: A: 1. Strept intermedius bacteremia: likely source is GI tract - blood Cx from 06/03 NGTD - given it is among abscess formers and causes endocarditis; TTE and CT based i maging of chest/abd/pelvis seem reasonable. CT c/a/p neg for any abscesses, TTE report pending. - I am concerned that S intermedius might be causing acute cholecystsitis and if pt continues to spike fevers, he might need percutaneous cholecystostomy for biliary drainage and/or GB removal. Strept anginosus (another viridans Strept) has been known to cause acute cholecystitis with bacteremia and septic shock in published literature. 2. Acute cholecystitis: - signif GB wall thickening is concerning 3. Negative sepsis screen with 0 Q-sofa score Recommendations: - Stop IV Zosyn and Metronidazole - Start IV Ceftriaxone 2 gm q24 hrs - Continue IV Vanc with pharmacy assisted dosing. will reassess after sensi available tomorrow on Strept intermedius. - Repeat blood Cx sent today - await TTE final report - if pt worsens clinically, and /or continue to spike fevers; he might need percutaneous cholecystostomy and/or cholecystectomy will follow Ulises Carlson MD Infectious diseases
[2018-06-03] MEDS: 0.9 % SODIUM CHLORIDE 10 ML SYRINGE IV SCH (20:53)
[2018-06-04] MEDS: 0.9 % SODIUM CHLORIDE 1,000 ML IV SCH ×5 (03:06→15:54)
[2018-06-04] MEDS: ACETAMINOPHEN 1,000 MG/100 ML BOTTLE IV SCH ×2 (06:00→13:02)
[2018-06-04 09:53] LABS: Basophils # (Auto) 0 K/mcL (0.0-0.3); Basophils % (Auto) 0.3 % (0.0-2.0); Eosinophils # (Auto) 0.1 K/mcL (0.0-0.7); Eosinophils % (Auto) 1.2 % (0.0-7.0); Granulocytes % (Auto) 82.8 % (38.0-78.0); Lymphocytes # (Auto) 0.7 K/mcL (1.5-4.8); Lymphocytes % (Auto) 7.5 % (15.5-49.0); Mean Cell Volume 83.1 fL (80.0-100.0); Mean Corpuscular HGB Conc 33.3 g/dL (31.0-36.0); Monocytes # (Auto) 0.7 K/mcL (0.1-0.9); Monocytes % (Auto) 8.2 % (1.0-12.0); Platelet Count 226 K/mcL (140-440); RBC 4.68 M/mcL (4.50-5.90); Red Cell Distribution Width 14.6 % (11.5-14.5)
--- NOTE | 2018-06-04 10:04 | Infectious Disease Prog Note ---
Subjective Patient information: Note initiated : 06/04/18 at 10:02 am Service Date, if different from initiated Date: [] Patient: Cheko Bautista 32 y/o M admitted on 06/01/18 for Abd Pain. Chief Complaint: [] Interval history: Patient is doing better. He denies any fever, chills, nausea, vomiting, diarrhea. Specifically denies any right-sided belly pain. Objective Objective Narrative: Alert, oriented x3 No thrush Chest clear to auscultation Heart sounds normal Bowel sounds present, belly is distended, nontender even on deep palpation No edema - Vital Signs Vital signs: Vital Signs Temp Pulse Resp BP BP Pulse Ox 06/04/18 06:24 37.7 C H 20 129/86 93 06/04/18 03:05 36.8 C 88 24 H 118/75 94 06/03/18 23:35 36.8 C 79 24 H 117/77 97 06/03/18 19:20 36.6 C 81 24 H 131/84 98 06/03/18 16:00 37.1 C 85 16 130/87 95 06/03/18 12:00 37.1 C 83 22 134/90 97 Intake and Output 06/03/18 06/04/18 06/04/18 21:59 05:59 13:59 Intake Total 2230 / 5380 1300 / 5380 340 / 340 Output Total 625 / 1650 300 / 1650 375 / 375 Balance 1605 / 3730 1000 / 3730 -35 / -35 Intake: IV 100 / 3050 1100 / 3050 100 / 100 Sodium Chloride 0.9% 1,000 ml @ 1000 / 2000 150 mls/hr IV .Q6H40M [facility] Rx#: [id number] Oral 2130 / 2330 200 / 2330 240 / 240 Output: Urine Catheter Amount 375 / 375 Void Amount 625 / 1075 300 / 1075 Other: Meal Dinner Breakfast Percent of Meal Consumed 25% 100% Feeding Ability Independent Urine Appearance Clear Clear Clear Urine Color Dark Daniela Light Daniela Dark Yellow Urine Odor Normal Stool Size Moderate Small Stool Consistency Loose Loose # Bowel Movements 1 1 Weight 104.099 kg Intake & Output: Intake & Output 06/03/18 06/04/18 06/04/18 21:59 05:59 13:59 Intake Total 2230 / 5380 1300 / 5380 340 / 340 Output Total 625 / 1650 300 / 1650 375 / 375 Balance 1605 / 3730 1000 / 3730 -35 / -35 Weight 104.099 kg Intake: IV 100 / 3050 1100 / 3050 100 / 100 Sodium Chloride 0.9% 1,000 ml @ 1000 / 2000 150 mls/hr IV .Q6H40M [facility] Rx#: [id number] Oral 2130 / 2330 200 / 2330 240 / 240 Output: Urine Catheter Amount 375 / 375 Void Amount 625 / 1075 300 / 1075 Other: Meal Dinner Breakfast Percent of Meal Consumed 25% 100% Feeding Ability Independent Urine Appearance Clear Clear Clear Urine Color Dark Daniela Light Daniela Dark Yellow Urine Odor Normal Stool Size Moderate Small Stool Consistency Loose Loose # Bowel Movements 1 1 - Lab 06/04/18 08:28 06/04/18 08:28 Most recent lab results Calcium 8.1 mg/dl (8.6-10.4) L 06/03/18 08:25 Phosphorus 2.1 mg/dL (2.7-4.5) L 06/03/18 08:25 Magnesium 1.8 mg/dL (1.6-2.5) 06/03/18 08:25 Microbiology 06/02/18 02:27 Stool Stool Culture - Final 05/31/18 20:09 Blood Blood Culture - Preliminary Streptococcus intermedius 06/02/18 02:26 Stool Parasite Direct Smear - Final 06/02/18 02:26 Stool Parasite Concentrated Smear - Final 06/02/18 02:26 Stool Parasite Permanent Smear - Final 05/31/18 15:36 Urine - Clean Void Mid-Stream Urine Culture - Final 06/02/18 02:26 Stool C. difficile GDH Antigen & Toxins - Final 06/01/18 23:05 Stool C.difficile Toxin B Gene (PCR) - Final 06/01/18 23:05 Stool Stool Culture - Final 06/01/18 23:05 Stool Hemorrhagic E.coli Culture - Final 06/01/18 23:05 Stool Parasite Direct Smear - Final 06/01/18 23:05 Stool Parasite Concentrated Smear - Final 06/01/18 23:05 Stool Parasite Permanent Smear - Final 05/31/18 19:58 Blood Blood Culture - Preliminary Gram positive cocci Medications Active Medications: Heparin Sodium (Porcine) (Heparin Flush) 2 ml IV Q12 [facility] Last Admin: 06/03/18 20:53 Dose: Not Given Documented by: DARWIN Non-Admin Reason: Continuous IV Hydromorphone HCl (Dilaudid) 1 mg IV Q2HP PRN PRN Reason: PAIN LEVEL > 6 Last Admin: 06/01/18 10:37 Dose: 1 mg Documented by: Admin: 05/31/18 18:18 Dose: 1 mg Documented by: ECTOR Acetaminophen (Ofirmev) 1,000 mg in 100 mls @ 200 mls/hr IV Q6HP PRN PRN Reason: PAIN/FEVER > 101 Last Infusion: 06/02/18 04:10 Dose: 0 mls/hr Documented by: Admin: 06/01/18 21:16 Dose: 200 mls/hr Documented by: Infusion: 06/01/18 08:53 Dose: 0 mls/hr Documented by: Admin: 06/01/18 08:23 Dose: 200 mls/hr Documented by: Infusion: 05/31/18 20:07 Dose: 0 mls/hr Documented by: Admin: 05/31/18 19:37 Dose: 200 mls/hr Documented by: ECTOR Vancomycin HCl 1,500 mg/ (Sodium Chloride) 500 mls @ 333.3 mls/hr IV Q12H [facility] Last Admin: 06/03/18 20:53 Dose: 333 mls/hr Documented by: Infusion: 06/03/18 10:03 Dose: 0 mls/hr Documented by: Admin: 06/03/18 08:29 Dose: 333 mls/hr Documented by: Infusion: 06/02/18 23:09 Dose: 333 mls/hr Documented by: Admin: 06/02/18 21:38 Dose: 333 mls/hr Documented by: Infusion: 06/02/18 13:09 Dose: 0 mls/hr Documented by: Admin: 06/02/18 11:38 Dose: 333 mls/hr Documented by: Infusion: 06/01/18 22:03 Dose: 333 mls/hr Documented by: Admin: 06/01/18 20:32 Dose: 333 mls/hr Documented by: Infusion: 06/01/18 12:30 Dose: 0 mls/hr Documented by: ASMHaile Admin: 06/01/18 10:28 Dose: 333.3 mls/hr Documented by: JEROME Acetaminophen (Ofirmev) 1,000 mg in 100 mls @ 200 mls/hr IV Q6 [facility] Last Infusion: 06/04/18 07:02 Dose: 0 mls/hr Documented by: Admin: 06/04/18 06:00 Dose: 100 mls/hr Documented by: Infusion: 06/04/18 00:26 Dose: 100 mls/hr Documented by: Admin: 06/03/18 23:26 Dose: 100 mls/hr Documented by: Infusion: 06/03/18 18:55 Dose: 100 mls/hr Documented by: Admin: 06/03/18 17:55 Dose: 100 mls/hr Documented by: Infusion: 06/03/18 13:09 Dose: 0 mls/hr Documented by: Admin: 06/03/18 12:09 Dose: 100 mls/hr Documented by: Infusion: 06/03/18 06:22 Dose: 0 mls/hr Documented by: Admin: 06/03/18 05:22 Dose: 100 mls/hr Documented by: Infusion: 06/03/18 00:27 Dose: 100 mls/hr Documented by: Admin: 06/02/18 23:27 Dose: 100 mls/hr Documented by: Admin: 06/02/18 17:46 Dose: Not Given Documented by: DARYA Non-Admin Reason: Off schedule Infusion: 06/02/18 17:01 Dose: 0 mls/hr Documented by: Admin: 06/02/18 15:44 Dose: 200 mls/hr Documented by: Infusion: 06/02/18 05:57 Dose: 200 mls/hr Documented by: Admin: 06/02/18 05:27 Dose: 200 mls/hr Documented by: Infusion: 06/02/18 01:31 Dose: 200 mls/hr Documented by: Admin: 06/02/18 01:01 Dose: 200 mls/hr Documented by: SAMIME Sodium Chloride (Sodium Chloride 0.9%) 1,000 mls @ 150 mls/hr IV .Q6H40M [facility] Last Admin: 06/04/18 03:07 Dose: Not Given Documented by: DARWIN Non-Admin Reason: Duplicate Admin: 06/04/18 03:06 Dose: 150 mls/hr Documented by: Infusion: 06/03/18 23:54 Dose: 150 mls/hr Documented by: Admin: 06/03/18 17:13 Dose: 150 mls/hr Documented by: Admin: 06/03/18 14:12 Dose: Not Given Documented by: DARYA Non-Admin Reason: Bag Still Infusing Infusion: 06/03/18 10:34 Dose: 0 mls/hr Documented by: Admin: 06/03/18 07:46 Dose: Not Given Documented by: DARYA Non-Admin Reason: Bag Still Infusing Admin: 06/03/18 03:53 Dose: 150 mls/hr Documented by: Infusion: 06/02/18 19:14 Dose: 150 mls/hr Documented by: Admin: 06/02/18 17:03 Dose: Not Given Documented by: DARYA Non-Admin Reason: Bag Still Infusing Admin: 06/02/18 12:33 Dose: 150 mls/hr Documented by: Infusion: 06/02/18 10:51 Dose: 150 mls/hr Documented by: Admin: 06/02/18 04:10 Dose: 150 mls/hr Documented by: SAMMIE Ceftriaxone Sodium 2 gm/ (Dextrose) 50 mls @ 100 mls/hr IV DAILY [facility] Last Admin: 06/03/18 14:11 Dose: 100 mls/hr Documented by: DARYA Ondansetron HCl (Zofran) 4 mg IV Q4-6HP PRN PRN Reason: Nausea And Vomiting Last Admin: 06/02/18 19:52 Dose: 4 mg Documented by: ECTOR Pantoprazole Sodium (Protonix) 40 mg IV Q12 [facility] Last Admin: 06/03/18 20:52 Dose: 40 mg Documented by: Admin: 06/03/18 10:11 Dose: 40 mg Documented by: Admin: 06/02/18 21:33 Dose: 40 mg Documented by: [email or web address] Admin: 06/02/18 10:17 Dose: 40 mg Documented by: Admin: 06/01/18 20:32 Dose: 40 mg Documented by: Admin: 06/01/18 08:22 Dose: 40 mg Documented by: [email or web address] Admin: 05/31/18 21:28 Dose: 40 mg Documented by: ECTOR Sodium Chloride (Saline Flush) 10 ml IV Q12 [facility] Last Admin: 06/03/18 20:53 Dose: 10 ml Documented by: DARWIN Vancomycin HCl (Vancomycin Per Pharmacy) 1 order IV UD [facility] Assessment and Plan - Narrative A/P Narrative: A: 1. Strept intermedius bacteremia: likely source is GI tract - blood Cx from 06/03 NGTD - given it is among abscess formers and causes endocarditis; TTE and CT based imaging of chest/abd/pelvis seem reasonable. CT c/a/p neg for any abscesses, TTE report pending. - I am concerned that S intermedius might be causing acute cholecystsitis and if pt continues to spike fevers, he might need percutaneous cholecystostomy for biliary drainage and/or GB removal. Strept anginosus (another viridans Strept) has been known to cause acute cholecystitis with bacteremia and septic shock in published literature. 2. Acute cholecystitis: - signif GB wall thickening on ultrasound 3. Negative sepsis screen with 0 Q-sofa score Recommendations: - Continue IV Ceftriaxone 2 gm q24 hrs - Stop IV Vanc - await TTE final report - if pt worsens clinically, and /or continue to spike fevers; he might need percutaneous cholecystostomy and/or cholecystectomy. If he continues to improve, will plan for continuing antibiotics (PO options) until his elective cholecystectomy and few days after that. will follow Ulises Carlson MD Infectious diseases
[2018-06-04 10:23] LABS: ALT/SGPT 19 U/l (0-40); Albumin 3.1 gm/dL (3.2-5.2); Alkaline Phosphatase 41 U/L (39-117); Bilirubin,Direct < 0.2 mg/dL (0.0-0.3); Blood Urea Nitrogen 6 mg/dl (6-20); Gamma Glutamyl Transpeptidase 47 U/L (8-61); Uric Acid 2.6 mg/dL (2.5-8.0)
[2018-06-04] MEDS: 0.9 % SODIUM CHLORIDE 10 ML SYRINGE IV SCH ×2 (10:36→21:22)
[2018-06-04] MEDS: VANCOMYCIN 1,500 MG in 0.9 % SODIUM CHLORIDE 500 ML IV SCH (10:36)
[2018-06-04] MEDS: PANTOPRAZOLE 40 MG VIAL IV SCH ×2 (10:36→21:22)
[2018-06-04] MEDS: cefTRIAXone 2 GM in DEXTROSE 5% IN WATER 50 ML IV SCH (10:39)
[2018-06-04] MEDS: HYDROmorphone 2 MG/ML VIAL IV PRN (13:03)
[2018-06-04] MEDS ORDERED: POTASSIUM PHOSPHATE 40 MEQ in DEXTROSE 5% IN WATER 500 ML IV ONE (15:00)
--- NOTE | 2018-06-04 15:11 | General Surgery Progress Note ---
Subjective Patient reports: feels better, tolerating a regular diet, flatus, bowel movement, diarrhea, afebrile Narrative: Note initiated : 06/04/18 at 3:09 pm Service Date, if different from initiated Date: [] Patient: Cheko Bautista 32 y/o M admitted on 06/01/18 for Abd Pain. Chief Complaint: [Patient is doing well. The patient had some transient epigastric pain which has resolved. He denies nausea. He is still having intermittent diarrhea. His white blood count was 8.9.] Objective Temp Pulse Resp BP Pulse Ox 98.6 F 86 20 152/92 97 06/04/18 12:00 06/04/18 08:00 06/04/18 12:00 06/04/18 12:00 06/04/18 12:00 - Additional Data Intake & Output - Last 24 hours: Intake & Output 06/02/18 06/03/18 06/04/18 06/05/18 05:59 05:59 05:59 05:59 Intake Total 6100 / 6100 4240 / 4240 5930 / 5930 1989 / 1989 Output Total 975 / 975 1865 / 1865 1275 / 1650 675 / 675 Balance 5125 / 5125 2375 / 2375 4655 / 4280 1315 / 1315 Weight 325 lb 8 oz 327 lb 229 lb 8 oz 229 lb 8 oz - General physical appearance well developed, well nourished, no distress, obese - Eyes PERRL, normal ocular movement - ENT normal pinna, normal nares, normal mucosa, no hearing loss, no congestion - Neck no masses, no bruits, trachea midline, no lymphadenopathy, no venous distension - Respiratory normal expansion, normal respiratory effort, clear to auscultation - Cardiovascular Cardiovascular exam: Present: normal rate and rhythm, RRR, +S1, +S2. Absent: JVD, tachycardia - Abdomen non tender, bowel sounds (present), surgical scars (none), masses (none) - Integumentary no rash, no growths, no abnormal pigmentation - Neurologic normal coordination, normal sensation - Musculoskeletal normal gait, normal posture - Psychiatric oriented to time, oriented to person, oriented to place, speech is normal, memory intact - Labs 06/04/18 08:28 06/04/18 08:28 Diabetes panel 06/04/18 Range/Units 08:28 Sodium 140 (133-145) mmol/L Potassium 3.2 L (3.3-5.1) mmol/L Chloride 107 (96-108) mmol/L Carbon Dioxide 20 L (22-30) mmol/L BUN 6 (6-20) mg/dl Creatinine 0.8 (0.7-1.2) mg/dl Glucose 91 (70-105) mg/dL Calcium 8.3 L (8.6-10.4) mg/dl AST 23 (0-37) U/l ALT 19 (0-40) U/l Alkaline Phosphatase 41 (39-117) U/L Total Protein 6.1 (5.9-8.4) gm/dL Albumin 3.1 L (3.2-5.2) gm/dL Triglycerides 145 (<150) mg/dl Calcium panel 06/04/18 Range/Units 08:28 Calcium 8.3 L (8.6-10.4) mg/dl Phosphorus 1.9 L (2.7-4.5) mg/dL Albumin 3.1 L (3.2-5.2) gm/dL Pituitary panel 06/04/18 Range/Units 08:28 Sodium 140 (133-145) mmol/L Potassium 3.2 L (3.3-5.1) mmol/L Chloride 107 (96-108) mmol/L Carbon Dioxide 20 L (22-30) mmol/L BUN 6 (6-20) mg/dl Creatinine 0.8 (0.7-1.2) mg/dl Glucose 91 (70-105) mg/dL Calcium 8.3 L (8.6-10.4) mg/dl Adrenal panel 06/04/18 Range/Units 08:28 Sodium 140 (133-145) mmol/L Potassium 3.2 L (3.3-5.1) mmol/L Chloride 107 (96-108) mmol/L Carbon Dioxide 20 L (22-30) mmol/L BUN 6 (6-20) mg/dl Creatinine 0.8 (0.7-1.2) mg/dl Glucose 91 (70-105) mg/dL Calcium 8.3 L (8.6-10.4) mg/dl Total Bilirubin 0.5 (0.0-1.0) mg/dL AST 23 (0-37) U/l ALT 19 (0-40) U/l Alkaline Phosphatase 41 (39-117) U/L Total Protein 6.1 (5.9-8.4) gm/dL Albumin 3.1 L (3.2-5.2) gm/dL Assessment and Plan (1) Acute sepsis Status: Acute Assessment and plan: Continue IV fluid hydration Low-fat diet Current Visit: Yes (2) Cholelithiasis and cholecystitis without obstruction Status: Acute Current Visit: Yes - Time Spent With Patient Total time spent is greater than 50% in coordination of care (as documented) at patient's floor/unit and/or counseling patient:
[2018-06-04] MEDS: ACETAMINOPHEN 1,000 MG/100 ML BOTTLE IV PRN (23:19)
[2018-06-05] MEDS: 0.9 % SODIUM CHLORIDE 1,000 ML IV SCH ×2 (02:11→15:26)
[2018-06-05] MEDS: cefTRIAXone 2 GM in DEXTROSE 5% IN WATER 50 ML IV SCH (08:34)
[2018-06-05] MEDS: 0.9 % SODIUM CHLORIDE 10 ML SYRINGE IV SCH ×2 (08:34→21:52)
[2018-06-05] MEDS: PANTOPRAZOLE 40 MG VIAL IV SCH ×2 (08:34→21:52)
[2018-06-05 09:54] LABS: ALT/SGPT 19 U/l (0-40); Albumin 2.7 gm/dL (3.2-5.2); Albumin/Globulin Ratio 0.9 (1.0-2.3); Alkaline Phosphatase 42 U/L (39-117); Bilirubin,Direct < 0.2 mg/dL (0.0-0.3); Blood Urea Nitrogen 6 mg/dl (6-20); Gamma Glutamyl Transpeptidase 50 U/L (8-61); Uric Acid 3.4 mg/dL (2.5-8.0)
[2018-06-05 10:01] LABS: Basophils # (Auto) 0 K/mcL (0.0-0.3); Basophils % (Auto) 0.4 % (0.0-2.0); Eosinophils # (Auto) 0.1 K/mcL (0.0-0.7); Eosinophils % (Auto) 1.6 % (0.0-7.0); Granulocytes % (Auto) 71.4 % (38.0-78.0); Lymphocytes # (Auto) 1.4 K/mcL (1.5-4.8); Lymphocytes % (Auto) 16.7 % (15.5-49.0); Mean Cell Volume 83.4 fL (80.0-100.0); Mean Corpuscular HGB Conc 33.3 g/dL (31.0-36.0); Monocytes # (Auto) 0.9 K/mcL (0.1-0.9); Monocytes % (Auto) 9.9 % (1.0-12.0); Platelet Count 240 K/mcL (140-440); RBC 4.44 M/mcL (4.50-5.90); Red Cell Distribution Width 14.4 % (11.5-14.5)
[2018-06-05] MEDS: metroNIDAZOLE 500 MG TABLET PO SCH ×2 (13:32→21:52)
--- NOTE | 2018-06-05 15:26 | General Surgery Progress Note ---
Subjective Patient reports: feels better, pain is less, tolerating a regular diet, flatus, diarrhea, fever Narrative: Note initiated : 06/05/18 at 3:24 pm Service Date, if different from initiated Date: [] Patient: Cheko Bautista 32 y/o M admitted on 06/01/18 for Abd Pain. Chief Complaint: [] Patient is stable. He had temperature elevation to 100 last evening but he feels well now. He does not have any pain. He has no abdominal tenderness with maximum deep palpation in his entire upper abdomen. He denies nausea. White blood count is 8.6; hemoglobin 12.4. Objective Temp Pulse Resp BP Pulse Ox 98.7 F 77 24 H 125/88 96 06/05/18 11:34 06/05/18 11:34 06/05/18 11:34 06/05/18 11:34 06/05/18 11:34 - Additional Data Intake & Output - Last 24 hours: Intake & Output 06/03/18 06/04/18 06/05/18 06/06/18 05:59 05:59 05:59 05:59 Intake Total 4240 / 4240 5930 / 5930 3594 / 3594 410 / 410 Output Total 1865 / 1865 1275 / 1650 1775 / 1775 1875 / 1875 Balance 2375 / 2375 4655 / 4280 1819 / 1819 -1465 / -1465 Weight 327 lb 229 lb 8 oz 334 lb 8 oz - General physical appearance well developed, well nourished, no distress - Eyes PERRL, normal ocular movement - ENT normal pinna, normal nares, normal mucosa, no hearing loss, no congestion - Neck no masses, no bruits, trachea midline, no lymphadenopathy, no venous distension - Respiratory normal expansion, normal respiratory effort, clear to auscultation - Cardiovascular Cardiovascular exam: Present: normal rate and rhythm, RRR, +S1, +S2. Absent: JVD, tachycardia - Abdomen non tender (abdominal exam is totally benign with deep palpation; good active jason wel sounds), bowel sounds (present), surgical scars (none), masses (none) - Integumentary no rash, no growths, no abnormal pigmentation - Neurologic normal coordination, normal sensation - Musculoskeletal normal gait, normal posture - Psychiatric oriented to time, oriented to person, oriented to place, speech is normal, memory intact - Labs 06/05/18 07:39 06/05/18 07:39 Diabetes panel 06/05/18 Range/Units 07:39 Sodium 138 (133-145) mmol/L Potassium 3.3 (3.3-5.1) mmol/L Chloride 103 (96-108) mmol/L Carbon Dioxide 22 (22-30) mmol/L BUN 6 (6-20) mg/dl Creatinine 0.8 (0.7-1.2) mg/dl Glucose 93 (70-105) mg/dL Calcium 8.2 L (8.6-10.4) mg/dl AST 21 (0-37) U/l ALT 19 (0-40) U/l Alkaline Phosphatase 42 (39-117) U/L Total Protein 5.8 L (5.9-8.4) gm/dL Albumin 2.7 L (3.2-5.2) gm/dL Triglycerides 157 H (<150) mg/dl Calcium panel 06/05/18 Range/Units 07:39 Calcium 8.2 L (8.6-10.4) mg/dl Phosphorus 2.8 (2.7-4.5) mg/dL Albumin 2.7 L (3.2-5.2) gm/dL Pituitary panel 06/05/18 Range/Units 07:39 Sodium 138 (133-145) mmol/L Potassium 3.3 (3.3-5.1) mmol/L Chloride 103 (96-108) mmol/L Carbon Dioxide 22 (22-30) mmol/L BUN 6 (6-20) mg/dl Creatinine 0.8 (0.7-1.2) mg/dl Glucose 93 (70-105) mg/dL Calcium 8.2 L (8.6-10.4) mg/dl Adrenal panel 06/05/18 Range/Units 07:39 Sodium 138 (133-145) mmol/L Potassium 3.3 (3.3-5.1) mmol/L Chloride 103 (96-108) mmol/L Carbon Dioxide 22 (22-30) mmol/L BUN 6 (6-20) mg/dl Creatinine 0.8 (0.7-1.2) mg/dl Glucose 93 (70-105) mg/dL Calcium 8.2 L (8.6-10.4) mg/dl Total Bilirubin 0.3 (0.0-1.0) mg/dL AST 21 (0-37) U/l ALT 19 (0-40) U/l Alkaline Phosphatase 42 (39-117) U/L Total Protein 5.8 L (5.9-8.4) gm/dL Albumin 2.7 L (3.2-5.2) gm/dL Assessment and Plan (1) Acute sepsis Status: Acute Assessment and plan: Continue IV fluid hydration Low-fat diet Continue antibiotics Possible discharge tomorrow on 2 weeks of oral antibiotics Current Visit: Yes (2) Cholelithiasis and cholecystitis without obstruction Status: Acute Current Visit: Yes - Time Spent With Patient Total time spent is greater than 50% in coordination of care (as documented) at patient's floor/unit and/or counseling patient:
[2018-06-06] MEDS: metroNIDAZOLE 500 MG TABLET PO SCH ×2 (05:49→13:07)
[2018-06-06 08:37] LABS: Basophils # (Auto) 0.1 K/mcL (0.0-0.3); Basophils % (Auto) 0.6 % (0.0-2.0); Eosinophils # (Auto) 0.3 K/mcL (0.0-0.7); Eosinophils % (Auto) 3.1 % (0.0-7.0); Granulocytes % (Auto) 71.1 % (38.0-78.0); Lymphocytes # (Auto) 1.6 K/mcL (1.5-4.8); Lymphocytes % (Auto) 17.7 % (15.5-49.0); Mean Cell Volume 82.7 fL (80.0-100.0); Mean Corpuscular HGB Conc 33.6 g/dL (31.0-36.0); Monocytes # (Auto) 0.7 K/mcL (0.1-0.9); Monocytes % (Auto) 7.5 % (1.0-12.0); Platelet Count 281 K/mcL (140-440); RBC 4.43 M/mcL (4.50-5.90); Red Cell Distribution Width 14.6 % (11.5-14.5)
[2018-06-06 08:59] LABS: ALT/SGPT 20 U/l (0-40); Albumin 2.9 gm/dL (3.2-5.2); Alkaline Phosphatase 42 U/L (39-117); Bilirubin,Direct < 0.2 mg/dL (0.0-0.3); Blood Urea Nitrogen 7 mg/dl (6-20); Gamma Glutamyl Transpeptidase 51 U/L (8-61); Uric Acid 3.8 mg/dL (2.5-8.0)
[2018-06-06] MEDS: cefTRIAXone 2 GM in DEXTROSE 5% IN WATER 50 ML IV SCH (09:25)
[2018-06-06] MEDS: PANTOPRAZOLE 40 MG VIAL IV SCH (09:26)
[2018-06-06] MEDS: 0.9 % SODIUM CHLORIDE 10 ML SYRINGE IV SCH (09:26)
--- NOTE | 2018-06-06 11:23 | Event Note ---
In anticipation of patient's discharge today: Switch IV Ceftriaxone 2 gm q24 hr to PO Levofloxacin 750 mg once daily, to be continued for 2 weeks with stop date of 06/19/18 Continue PO Metronidazole 500 mg q8 hrs for 2 weeks, with stop date of 06/19/18 In my discussion with Dr. Mendez, there is a plan to remove patient's gall bladder in next few weeks when the GB inflammation will subside. I will follow the patient in ID clinic on 06/21/18. Ulises Carlson MD Infectious diseases
--- NOTE | 2018-06-06 15:40 | Discharge Summary ---
Providers - Providers Patient information: Note initiated : 06/06/18 at 3:36 pm Service Date, if different from initiated Date: [] Patient: Cheko Bautista 32 y/o M admitted on 06/01/18 for Abd Pain. Chief Complaint: [] Date of admission: 06/01/18 Discharge date: 06/06/18 Attending physician: Piyush Mendez infectious disease Hospitalization Hospital course: 32-year-old male admitted on June 12 with complaint of upper abdominal pain fever chills and sepsis. 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 He gives a history of having intermittent diarrhea for many months which resolved spontaneously. He denied sore throat, facial pain, neck pain, chest discomfort. He denies swelling tenderness or inflammation extremities.. He was seen in the emergency room where he was noted to be afebrile with a normal exam except for epigastric tenderness. He was treated for suspected gastritis and released. He'll return on the day of admission with diffuse upper abdominal pain and nausea but with no history of fever and chills. CT of the abdomen showed scattered air-fluid levels suspicious for gastroenteritis. There was no free air in the upper abdomen. He remains asymptomatic and his temperature elevations increased to 103. His white blood count increased to 19,200. He was admitted with suspected sepsis and was treated with broad-spectrum antibiotics pending cultures. On the evening of 01 June he remained febrile throughout the night and had a white blood count of 26,600. He became hypotensive. He was treated with increased IV fluids. Blood cultures returned the following day for gram-positive cocci in his in both specimen and he was switched to vancomycin and Zosyn. He gradually improved. He was seen by infectious disease and CT of chest abdomen and pelvis were done. This showed thickening of the gallbladder that was not previously present. His tachycardia and fever improved by the next morning and he was less symptomatic. By 26 May his white blood count was down to 11.9. It has been normal at the 8.6 range since 04 June. His peak temperature since 05 June has been 99.3. Patient has minimal tenderness at this time. His antibiotics de- escalated by infectious disease. He is clinically stable and will be discharged home on Levaquin and metronidazole for 2 weeks. I will follow him up in the office in 2 weeks and schedule cholecystectomy at that time. He is advised to return to the emergency room if his symptoms should worsen. Discharge diagnosis: acute septicemia due to Streptococcus intermedius Secondary discharge diagnosis: Acute cholecystitis with cholelithiasis Reason for admission: abdominal pain nausea vomiting and sepsis Procedures: Man Pertinent studies/significant findings: CT of abdomen and pelvis and chest Complications: Man Exam Temp Pulse Resp BP Pulse Ox 98.9 F 71 16 142/91 97 06/06/18 12:00 06/06/18 03:25 06/06/18 12:00 06/06/18 12:00 06/06/18 12:00 - General physical appearance well developed, well nourished, no distress, no pain, obese - Eyes PERRL, normal ocular movement - ENT normal pinna, normal nares, normal mucosa, no hearing loss, no congestion - Head Head exam IM: Present: atraumatic, normal inspection, normocephalic - Neck no masses, no bruits, trachea midline, no lymphadenopathy, no venous distension - Cardiovascular Cardiovascular exam IM: Present: normal rate and rhythm, +S1, +S2. Absent: irregular rhythm, JVD, tachycardia - Respiratory normal expansion, normal respiratory effort, clear to percussion, clear to auscultation - Abdomen Abdomen: Present: soft, non tender (no tenderness to palpation in the entire abdomen with special attention to the epigastrium and right upper quadrant), bowel sounds Hernia: Present: none - Genitourinary Present: normal penis with no external lesions - Integumentary Present: no rash, no growths, no abnormal pigmentation - Neurologic Present: normal coordination, normal sensation - Musculoskeletal Present: normal gait, normal posture - Psychiatric Present: oriented to time, oriented to person, oriented to place, speech is nor mal, memory intact Discharge Plan - Patient/Caregiver Discharge Instructions Activity: increase activity as tolerated Diet: Low Fat Prescriptions: RX: Levofloxacin [Levaquin] 750 mg PO DAILY #14 tablet RX: metroNIDAZOLE [Flagyl] 500 mg PO Q8 #40 tablet - Follow up Plan Follow up with: Kevin Paz MD [Primary Care Provider] - Ulises Carlson MD [Physician] - 06/21/18 Piyush Mendez MD [Physician] - Disposition: Home, Self-Care Prognosis: Good Rehab Potential: Good I certify that the patient requires SNF services.: No Overall status at discharge: patient is progressing back to baseline Pending Studies Resuscitation Status Full Code Diet Low Fat Diet Start ThuJun 04 [id number] Heparin Sodium (Porcine) (Heparin Flush) 2 ml IV Q12 [facility] Last Admin: 06/06/18 10:20 Dose: 2 ml Documented by: Admin: 06/05/18 21:53 Dose: 2 ml Documented by: Admin: 06/05/18 08:34 Dose: Not Given Documented by: Admin: 06/04/18 21:22 Dose: Not Given Documented by: Admin: 06/04/18 10:35 Dose: 2 ml Documented by: Admin: 06/03/18 20:53 Dose: Not Given Documented by: DARWIN Hydromorphone HCl (Dilaudid) 1 mg IV Q2HP PRN PRN Reason: PAIN LEVEL > 6 Last Admin: 06/04/18 13:03 Dose: 0.5 mg Documented by: Admin: 06/01/18 10:37 Dose: 1 mg Documented by: Admin: 05/31/18 18:18 Dose: 1 mg Documented by: ECTOR Acetaminophen (Ofirmev) 1,000 mg in 100 mls @ 200 mls/hr IV Q6HP PRN PRN Reason: PAIN/FEVER > 101 Last Infusion: 06/04/18 23:55 Dose: 0 mls/hr Documented by: Admin: 06/04/18 23:19 Dose: 200 mls/hr Documented by: Infusion: 06/02/18 04:10 Dose: 0 mls/hr Documented by: Admin: 06/01/18 21:16 Dose: 200 mls/hr Documented by: Infusion: 06/01/18 08:53 Dose: 0 mls/hr Documented by: Admin: 06/01/18 08:23 Dose: 200 mls/hr Documented by: Infusion: 05/31/18 20:07 Dose: 0 mls/hr Documented by: Admin: 05/31/18 19:37 Dose: 200 mls/hr Documented by: ECTOR Metronidazole (Flagyl) 500 mg PO Q8 [facility] Last Admin: 06/06/18 13:07 Dose: 500 mg Documented by: Admin: 06/06/18 05:49 Dose: 500 mg Documented by: Admin: 06/05/18 21:52 Dose: 500 mg Documented by: Admin: 06/05/18 13:32 Dose: 500 mg Documented by: [email or web address] Ondansetron HCl (Zofran) 4 mg IV Q4-6HP PRN PRN Reason: Nausea And Vomiting Last Admin: 06/02/18 19:52 Dose: 4 mg Documented by: ECTOR Pantoprazole Sodium (Protonix) 40 mg IV Q12 [facility] Last Admin: 06/06/18 09:26 Dose: 40 mg Documented by: Admin: 06/05/18 21:52 Dose: 40 mg Documented by: Admin: 06/05/18 08:34 Dose: 40 mg Documented by: Admin: 06/04/18 21:22 Dose: 40 mg Documented by: Admin: 06/04/18 10:36 Dose: 40 mg Documented by: Admin: 06/03/18 20:52 Dose: 40 mg Documented by: Admin: 06/03/18 10:11 Dose: 40 mg Documented by: Admin: 06/02/18 21:33 Dose: 40 mg Documented by: Admin: 06/02/18 10:17 Dose: 40 mg Documented by: Admin: 06/01/18 20:32 Dose: 40 mg Documented by: Admin: 06/01/18 08:22 Dose: 40 mg Documented by: [email or web address] Admin: 05/31/18 21:28 Dose: 40 mg Documented by: ECTOR Sodium Chloride (Saline Flush) 10 ml IV Q12 [facility] Last Admin: 06/06/18 09:26 Dose: 10 ml Documented by: [email or web address] Admin: 06/05/18 21:52 Dose: 10 ml Documented by: Admin: 06/05/18 08:34 Dose: 10 ml Documented by: Admin: 06/04/18 21:22 Dose: 10 ml Documented by: Admin: 06/04/18 10:36 Dose: 10 ml Documented by: Admin: 06/03/18 20:53 Dose: 10 ml Documented by: DARWIN Shift Summary 06/06/18 04:05 Shift Summary by Ronnell Gudino Pt has again rested well tonight. He has had some mild upper ABD pressure 1/10, no nausea, and only sl elevated temp 99.0 last. Pt is up AMB in RM (I) - voiding per urinal - urine is clear yellow - several sm loose BM's. No skin issues. Midline LT arm is flushed & patent. Last VS @ 0320 - WNL on R.A.. He is A&Ox4, calm, pleasant, & cooperative. Looking forward to D/C later today. Initialized on 06/06/18 04:05 - END OF NOTE
[2018-06-07] MEDS ORDERED: LEVOFLOXACIN 750 MG TABLET PO SCH (09:00)
== END 2018-06-06 17:11 | disposition home or self-care (01) | DRG 872 ==
LOC: ED 13:42 → MEDSUR 13:42
PROVIDERS: ADMIT Family Medicine Adult Medicine; ATTEND Family Medicine Adult Medicine